=== PATIENT | female | born 1970 ===

== ENCOUNTER 2017-07-15 09:06 | Day surgery (SDC) | payer BC ==
[2017-07-02 08:31] VITALS: BMI 27.7
[2017-07-15] MEDS ORDERED: Propofol 10 mg/ml Inj (20 ML) ONE (10:59)
[2017-07-15] MEDS ORDERED: Midazolam 2 MG/2 ML VIAL ONE (11:00)
[2017-07-15] MEDS ORDERED: Morphine 4 mg/ml ISec IVP PRN (11:32)
[2017-07-15] MEDS ORDERED: Lactated Ringer's 1,000 ML IV SCH (11:45)
[2017-07-15 12:36] VITALS: TEMP 98.2
[2017-07-15 13:06] VITALS: BP 103/66; PULSE 73; RESP 18; O2SAT 99
--- NOTE | 2017-07-29 07:21 | OP ---
PROCEDURE DATE: 07/15/2017 PREOPERATIVE DIAGNOSIS: Abnormal uterine bleeding. POSTOPERATIVE DIAGNOSIS: Abnormal uterine bleeding. PROCEDURE: Fractional dilatation and curettage. SURGEON: Casey Johns II, MD ANESTHESIA: General. ANESTHESIOLOGIST: Dr. Alvarado. FLUIDS: IV crystalloids and IV prophylactic antibiotics. DRAINS: None. ESTIMATED BLOOD LOSS: Minimal. CONDITION: Stable. CLINICAL FINDINGS: This is a 46-year-old female with preoperative diagnosis as prescribed above, who after discussion of the risks, benefits, and expected outcomes of all treatment alternatives, elected for the surgery described above and signed written informed consent. DESCRIPTION OF PROCEDURE: The patient was brought to the OR, placed under an adequate level of general anesthesia, then prepped and draped in the usual sterile fashion for vaginal surgery. The legs placed and properly positioned in Declan universal stirrups. The bladder was drained to straight catheter. Examination under anesthesia was performed and weighted-speculum placed into the vagina. The cervix was placed on traction with tenaculum and gently dilated sounded. Endocervical curettings were taken followed by endometrial curetting, some moderate amount of benign-appearing tissue was obtained. The tenaculum was removed. No bleeding was noted from tenaculum site. No bleeding was noted from the cervical os. This concluded the surgical procedure. The patient tolerated the procedure well and brought to recovery in stable condition. Further treatment if necessary will depend upon the final pathologic results. Casey Johns II, MD
== END 2017-07-15 13:30 | disposition home or self-care (01) ==
LOC: SDS 09:06
PROVIDERS: ATTEND Obstetrics & Gynecology Gynecology
DX: N93.9 Abnormal uterine and vaginal bleeding, unspecified (principal); Z85.3 Personal history of malignant neoplasm of breast
CPT/HCPCS: 58120; 84703; 88305; J0690; J1100; J2001; J2250; J2270; J2405; J2704; J2765; J3010; J7030; J7120 ×2

== ENCOUNTER 2018-08-16 08:36 | Outpatient (CLI) | payer BC | END 2018-08-16 08:37 | disposition home or self-care (01) | LOC: RAD 08:36 ==